=== PATIENT | female | born 1985 | race Caucasian/White ===

== ENCOUNTER 2017-09-13 09:30 | Inpatient (IN) | payer OTHER ==
[~2017-09-13] VITALS: Ht 162.6 cm; Wt 63.5 kg
[2017-10-05] MEDS ORDERED: PRENATAL TABLE1 EAC1 PO (10:44)
[2017-10-05] MEDS ORDERED: IRON 100 PLUS1 EACH PO (10:45)
== END 2017-10-08 11:55 | disposition home or self-care (01) | DRG 766 ==
LOC: LDR 10-05 08:30 → O/R 10-05 10:17 → OB/GYN 10-05 15:55 → LDR 10-10 09:30
PROVIDERS: Obstetrics & Gynecology Maternal & Fetal Medicine
PROC: 4A1HXCZ Monitoring of Products of Conception, Cardiac Rate, External Approach (ICD-10-PCS; 2017-10-05)
PROC: 4A033R1 Measurement of Arterial Saturation, Peripheral, Percutaneous Approach (ICD-10-PCS; 2017-10-05)
PROC: 10D00Z1 Extraction of Products of Conception, Low, Open Approach (ICD-10-PCS; principal; 2017-10-05 08:30)
DX: O34.211 Maternal care for low transverse scar from previous cesarean delivery (principal); O69.81X0 Labor and delivery complicated by cord around neck, without compression, not applicable or unspecified; Z3A.39 39 weeks gestation of pregnancy; Z37.0 Single live birth